=== PATIENT | female | born 1985 | race Caucasian/White ===

== ENCOUNTER 2021-12-21 12:59 | Emergency (ER) | payer OTHER, SELFPAY ==
--- NOTE | ~2021-12-21 | XR_ITS ---
EXAMINATION: XR chest 2V, XR abdomen/kub 1V DATE: 12/21/2021 14:11 INDICATION: Posterior left back pain with inspiration TECHNIQUE: 1. PA and lateral views of the chest were obtained. 2. Supine AP view of the abdomen and pelvis was obtained on 2 overlapping radiographs. COMPARISON: None FINDINGS: Chest: The lungs are clear with no focal airspace opacities, pulmonary edema, pleural effusion or pneumothor ax. The cardiomediastinal silhouette is normal. Mild thoracic spondylosis. Abdomen and pelvis: Small amount of gas and stool scattered throughout the colon. No dilated gas-filled loops of bowel to suggest obstruction. 3 mm likely stone projecting over the lower pole of the left kidney. Os acetabu la and both the left and right hips. Bones are otherwise unremarkable. IMPRESSION: 1. No acute cardiopulmonary disease. 2. 3 mm left renal stone. 3. Normal bowel gas pattern. Reviewed, dictated and finalized at location A. IMPRESSION: 1. No acute cardiopulmonary disease. 2. 3 mm left renal stone. 3. Normal bowel gas pattern.
[2021-12-21 13:08] VITALS: BP 139/71; PULSE 98; RESP 20; TEMP 37.7; O2SAT 100
--- NOTE | 2021-12-21 13:19 | ED.GENADULT ---
HPI - General Adult General Chief complaint: Back Pain/Injury Stated complaint: Left Side Pain Time Seen by Provider: 12/21/21 13:25 Source: patient Mode of arrival: ambulatory Limitations: no limitations History of Present Illness HPI narrative: 36 y/o female presented for c/o left mid back pain, onset yesterday. Endorses at 0200 waking from sleep with sharp mid chest pain, checked pulse ox states it was 80's. Drove to ER but did not go in because O2 sat improved. She took GasX and mid chest pain resolved. Left mid back pain is constant and described as 'constricted,' worse with deep breath and laying down. Endorses one episode of dysuria 2 days ago. Denies sob, palpitations, leg pain/edema, n/v/d/f/c. Has not taken anything for pain. Endorses driving home from [place] over the last few days. LMP today. Hx renal stone and IBS. Related Data Home Medications Medication Instructions Recorded Confirmed Iron Supplement PO DAILY 12/21/21 Allergies Allergy/AdvReac Type Severity Reaction Status Date / Time Penicillins Allergy Swelling Verified 12/21/21 13:28 of Lip/Tongue/Throat Review of Systems Review of Systems: CONSTITUTIONAL: Denies body aches, fever, chills, or sweats. EYES: Denies visual changes, redness, or discharge. ENT: Denies rhinorrhea, congestion, sore throat, or otalgia. CARDIOVASCULAR: Denies chest pain, palpitations, or edema. RESPIRATORY: Denies cough or dyspnea. GASTROINTESTINAL: Denies abdominal pain, nausea, vomiting, or diarrhea. GENITOURINARY: Denies dysuria or hematuria. SKIN: Denies rash, itching, or wounds. MUSCULOSKELETAL: Endorses left sided back pain NEUROLOGIC: Denies headache, numbness, tingling, or weakness. PSYCH: Denies depression or anxiety. All systems reviewed & are unremarkable except as noted in HPI and below PMFSH Comments At time of signature, I have reviewed and agree with nursing past medical, surgical, social and family history unless otherwise noted. Please see nursing chart for further information. There is no relevant family history pertinent to the presenting complaint Exam Narrative: GENERAL: Well-appearing HEAD: Normocephalic, atraumatic. EYES: EOMI. No redness or drainage. Conjunctivae normal. ENT: Mucous membranes pink and moist. No rhinorrhea. NECK: Normal AROM. Supple. No lymphadenopathy. CHEST: No respiratory distress. Clear to auscultation. HEART: Regular rate and rhythm. No murmur appreciated. Normal peripheral pulses. ABDOMEN: Soft, nontender, nondistended, normal active bowel sounds. No CVA tenderness MUSCULOSKELETAL: No bony tenderness. Nontender left mid back/ribs. EXTREMITIES: Normal range of motion. No edema. SKIN: Warm, dry, no rash. Capillary refill normal. Normal skin turgor. NEURO: No focal deficits. Alert and oriented x3. Gait steady. PSYCH: Normal affect. No signs of depression or anxiety. Course Course Emergency Course: Patient is aware of diagnosis, understands and agrees to treatment plan. Anticipatory guidance given. Patient agrees to follow-up as directed and is aware of reasons to seek care at the emergency department. Portions of this record may have been created with voice recognition software Level of Care: Express Care Visit Vital Signs Vital signs: Vital Signs Temperature 99.9 F H 12/21/21 13:08 Pulse Rate 98 12/21/21 13:08 Respiratory Rate 20 12/21/21 13:08 Blood Pressure 139/71 12/21/21 13:08 Pulse Oximetry 100 12/21/21 13:08 Temperature 99.9 F H 12/21/21 13:08 Pulse Rate 98 12/21/21 13:08 Respiratory Rate 20 12/21/21 13:08 Blood Pressure 139/71 12/21/21 13:08 Pulse Oximetry 100 12/21/21 13:08 Medical Decision Making [facility] Narrative Medical decision making narrative: Presented for c/o constant left mid back pain x2 days. Denies current cp, palpitations, sob. O2 sat maintainted >95% RA. No distress or acute concerns. CXR and KUB reviewed with pt, left renal stone lik
--- NOTE | 2021-12-21 14:26 | PC.NURSE ---
PT ATTEMPTED TO SWALLOW THE IBUPROFEN TABLETS BUT REPORTS UNABLE TO SWALLOW PILLS SO DID NOT TAKE THE MEDICINE. JAE KAPLAN RN
--- NOTE | 2021-12-21 14:28 | PC.NURSE ---
PT ALSO PREVIOUSLY REFUSED TORADOL INJECTION WITH CONCERNS THAT MIGHT FEEL DROWSY . JAE KAPLAN RN.
== END 2021-12-21 14:45 | disposition home or self-care (01) ==
PROVIDERS: Emergency Provider Nurse Practitioner Family
DX: N20.0 Calculus of kidney (principal)
CPT/HCPCS: 71046; 74018; 81003; 87086; 99213; A9270; G0463